=== PATIENT | male | born 1955 | race Caucasian/White ===

== ENCOUNTER 2019-02-27 20:11 | Emergency (ER) | payer MEDICARE, MEDICAID, SELFPAY ==
--- NOTE | 2019-02-27 20:12 | ED_ITS ---
Entered by Rolanda David, acting as scribe for Rachel Kathleen MD HPI - Chest Pain General: Chief Complaint: Chest Pain Stated Complaint: CP Time Seen by Provider: 02/27/19 20:12 Source: patient and EMS Mode of arrival: EMS History of Present Illness: HPI narrative: 63 yo male presents with chest pain. pt states this started 4 days ago. pt states the pain has no let up yet. pt was given Tylenol at shelter but it did not help. pt denies any other symptoms at this time. MD complaint: chest pain Onset (ago): day(s) (2-3 days) Timing of current episode: still present Prior episodes: Yes Pain location: substernal Pain radiation: none Severity: mild Quality: tightness Relieving factors: nothing Exacerbating factors: nothing Associated symptoms: Reports no associated symptoms; Deny abdominal pain, dyspnea, fever(s) or vomiting Treatment prior to arrival: none Review of Systems General: Reports: 10 or more systems reviewed and unremarkable except in HPI and below Const: Denies: fever or chills Eyes: Denies: change in vision ENMT: Denies: throat pain or mouth pain Card: Reports: chest pain Resp: Denies: shortness of breath GI: Denies: abdominal pain, vomiting or diarrhea Musc: Denies: back pain or joint pain Skin/Breast: Denies: rash Neuro: Denies: headache Psych: Denies: depression Endo: Denies: excessive urination Dylon/Lymph: Denies: easy bruising All/Imm: Denies: hives PFSH ED PFSH: Statuses (acute, chronic, etc) shown below reflect problem list status as previously entered and may not be historically accurate Social History Smoking and tobacco status: former smoker Physical Exam Const: COMMON NORMALS: no apparent distress and healthy appearing HENMT: COMMON NORMALS: normocephalic and external nose normal HEAD & SCALP: normocephalic NOSE: external nose normal and no nasal discharge (nasal dischage) Eye: COMMON NORMALS: PERRL PUPIL: Yes PERRL Neck/C-Spine: COMMON NORMALS: full ROM and no lymphadenopathy Chest: COMMONS NORMALS: inspection of chest normal Resp: COMMON NORMALS: normal respiratory effort and clear to auscultation bilaterally AUSCULTATION: clear to auscultation bilaterally Cardio: COMMON NORMALS: regular rate and regular rhythm RATE: regular rate RHYTHM: regular rhythm GI: COMMON NORMALS: soft to palpation PALPATION: Yes soft Extremity: COMMON NORMALS: normal to inspection, full ROM and normal capillary refill Psych: COMMON NORMALS: mental status grossly normal and cooperative Skin: COMMON NORMALS: no rashes or lesions noted GENERAL SKIN EXAM: no rashes or lesions noted Course Vital Signs: Vital signs: Vital Signs Temperature 97.5 F L 02/27/19 20:19 Pulse Rate 76 02/27/19 20:19 Respiratory Rate 22 H 02/27/19 20:19 Blood Pressure 188/64 02/27/19 20:19 Pulse Oximetry 95 02/27/19 20:19 MDM - Chest Pain MDM Narrative: Medical decision making narrative: He has no signs of cardiac cause. Patient is stable for discharge and is return if worsening.Patient presents with chest pain is atypical in nature. His 2-hour troponin is unchanged Lab Data: Labs: Lab Results 02/27/19 02/27/19 02/27/19 Range/Units 19:50 19:50 19:50 WBC 5.7 (4.0-10.0) 10^3/ uL RBC 3.47 L (4.1-5.3) 10^6/u L Hgb 10.5 L (11.7-16.6) g/dL Hct 33.0 L (42.0-52.0) % MCV 95.1 H (80-94) fL MCH 30.3 (28.0-34.0) pg MCHC 31.8 (30.0-36.0) g/dL RDW 16.0 H (12.1-15.1) % Plt Count 81 L (130-400) 10^3/c mm MPV 10.9 H (7.4-10.4) fL Neut % (Auto) 71.4 % Lymph % (Auto) 14.1 % [place] % (Auto) 8.0 % Eos % (Auto) 5.9 % Baso % (Auto) 0.3 % Neut # (Auto) 4.1 (1.8-7.7) 10^3/u L Lymph # (Auto) 0.8 (0.8-4.8) 10^3/u L [place] # (Auto) 0.5 (0.2-0.9) 10^3/u L Eos # (Auto) 0.3 (0.0-0.8) 10^3/u L Baso # (Auto) 0.0 (0.0-0.1) 10^3/u L Nucleated RBC % (a uto) 0 % Nucleated RBCs # 0.0 /100WBC Sodium 137 (136-145) mmol/L Potassium 4.2 (3.5-5.1) mmol/L Chloride 103 (98-107) mmol/L Carbon Dioxide 23 (22-29) mmol/L Anion Gap 15.2 (5-19) BUN 9 (8-23) mg/dL Creatinine 0.7 (0.7-1.2) mg/dL GFR Calculation 113.2 (90-130) mL/min Glucose 208 H (74-106) mg/dL Calcium 9.7 (8.8-10.2) mg/Dl Total Bilirubin 0.6 (0.15-1.2) mg/dL AST 38 (0-40) U/L ALT 33 (0-41) U/L Alkaline Phosphata se 142 H (40-130) IU/L Troponin T Baselin e 31 H (0-15) ng/mL Troponin T 120 Min lower [place] (0-15) ng/mL Total Protein 7.3 (6.6-8.7) g/dL Albumin 3.4 L (3.5-5.2) g/dL Globulin 3.9 (1.3-4.6) g/dL 02/27/19 Range/Units 22:09 WBC (4.0-10.0) 10^3/ uL RBC (4.1-5.3) 10^6/u L Hgb (11.7-16.6) g/dL Hct (42.0-52.0) % MCV (80-94) fL MCH (28.0-34.0) pg MCHC (30.0-36.0) g/dL RDW (12.1-15.1) % Plt Count (130-400) 10^3/c mm MPV (7.4-10.4) fL Neut % (Auto) % Lymph % (Auto) % [place] % (Auto) % Eos % (Auto) % Baso % (Auto) % Neut # (Auto) (1.8-7.7) 10^3/u L Lymph # (Auto) (0.8-4.8) 10^3/u L [place] # (Auto) (0.2-0.9) 10^3/u L Eos # (Auto) (0.0-0.8) 10^3/u L Baso # (Auto) (0.0-0.1) 10^3/u L Nucleated RBC % (a uto) % Nucleated RBCs # /100WBC Sodium (136-145) mmol/L Potassium (3.5-5.1) mmol/L Chloride (98-107) mmol/L Carbon Dioxide (22-29) mmol/L Anion Gap (5-19) BUN (8-23) mg/dL Creatinine (0.7-1.2) mg/dL GFR Calculation (90-130) mL/min Glucose (74-106) mg/dL Calcium (8.8-10.2) mg/Dl Total Bilirubin (0.15-1.2) mg/dL AST (0-40) U/L ALT (0-41) U/L Alkaline Phosphata se (40-130) IU/L Troponin T Baselin e (0-15) ng/mL Troponin T 120 Min lower [place] 37.22 H (0-15) ng/mL Total Protein (6.6-8.7) g/dL Albumin (3.5-5.2) g/dL Globulin (1.3-4.6) g/dL Imaging Data^: CXR: Attestation: I personally reviewed and interpreted this imaging study as follows: My impression: no acute abnormality EKG Data^: EKG 1: Attestation: I personally reviewed and interpreted this EKG as follows: EKG interpretation date: 02/27/19 EKG interpretation time: 20:27 Interpretation: Normal sinus rhythm heart rate [address] or T wave abnormalities QRS 80 QTC 432 EKG 2: Attestation: I personally reviewed and interpreted this EKG as follows: EKG interpretation date: 02/27/19 EKG interpretation time: 22:23 Interpretation: nsr [address] or t wave abnormlaities qrs 84 qtc 438 Discharge Plan Discharge Patient Disposition: Home, Self-Care Clinical Impression: Chest pain Qualifiers: Chest pain type: unspecified Qualified Code(s): R07.9 - Chest pain, unspecified Condition: Stable Prescriptions: No Action acetaminophen 325 mg Tablet 650 mg PO QID PRN (Reason: Pain) RF: 0 Advair Diskus 250-50 mcg/dose Blister With Device 1 inh INHALATION BID RF: 0 albuterol sulfate 2.5 mg /3 mL (0.083 %) Solution For Nebulization 2.5 mg INHALATION Q4H PRN (Reason: Wheezing) RF: 0 loratadine 10 mg Tablet 10 mg PO DAILY RF: 0 aripiprazole 10 mg Tablet 10 mg PO DAILY RF: 0 atorvastatin 10 mg Tablet 10 mg PO DAILY RF: 0 bisacodyl 5 mg Tablet 10 mg PO DAILY PRN (Reason: Constipation) RF: 0 polyethylene glycol 3350 17 gram Powder In Packet 17 g PO DAILY PRN (Reason: Constipation) RF: 0 Deep Sea Nasal 0.65 % Aerosol,[place] INTRANASAL TID RF: 0 Enema 19-7 gram/118 mL Enema 118 ml AL DAILY PRN (Reason: Constipation) RF: 0 escitalopram oxalate 20 mg Tablet 20 mg RF: 0 GlucaGen HypoKit 1 mg Recon Soln 1 mg SUBCUT Q20M PRN (Reason: Hypoglycemia) RF: 0 lactulose 10 gram Packet 10 g PO QID RF: 0 levetiracetam 750 mg Tablet 750 mg PO BID RF: 0 Levemir U-100 Insulin 100 unit/mL Solution 60 unit SUBCUT BID RF: 0 lisinopril 5 mg Tablet 5 mg PO DAILY RF: 0 MediHoney (honey) 80 % Gel 1 applic TOPICAL DAILY RF: 0 metformin 1,000 mg Tablet 1,000 mg PO BID RF: 0 Milk of Magnesia 400 mg/5 mL Suspension 400 mg PO DAILY PRN (Reason: Constipation) RF: 0 Natural Tears (PF) 0.1-0.3 % Dropperette 1 drp OPHTHALMIC (EYE) QID PRN (Reason: Dry Eyes) RF: 0 Novolog Flexpen U-100 Insulin 100 unit/mL (3 mL) Insulin Pen 15 unit SUBCUT BEDTIME RF: 0 Novolog U-100 Insulin aspart 100 unit/mL Solution 55 unit SUBCUT DAILY RF: 0 Novolog U-100 Insulin aspart 100 unit/mL Solution 40 unit SUBCUT BID RF: 0 Nystop 100,000 unit/gram Powder TOPICAL DAILY RF: 0 ondansetron 8 mg Tablet,Disintegrating 8 mg PO Q12H PRN (Reason: Vomiting) RF: 0 quetiapine 100 mg Tablet 100 mg PO DAILY RF: 0 ranitidine HCl 150 mg Tablet 150 mg PO BID RF: 0 senna 8.6 mg Capsule 8.6 mg PO BEDTIME PRN (Reason: Constipation) RF: 0 Stool Softener 100 mg Capsule 100 mg PO BID RF: 0 topiramate 100 mg Tablet 100 mg PO BID RF: 0 Discharge Orders: Discharge Order (Routine); Ordered 02/27/19 Ordered By: Rachel Kathleen Referrals: Tanisha Mack MD [Family Provider] - 4-7 days Discharge Diet: Advance as tolerated Discharge Activity: Resume usual activity Patient Instructions: Chest Pain (ED) Coding Level of Care Code ED Md Allergy Immunology for Chg Fwd Exam Problem Focused The documentation recorded by the Frankie mckeon Bridget Annette, accurately reflects the service I personally performed and the decisions made by Hever barker Korby, MD Feb 27, 2019 20:11
--- NOTE | 2019-02-27 20:16 | ECG_ITS ---
Measurements Intervals [place] Rate: 73 P: 63 UT: 152 QRS: 56 QRSD: 80 T: 46 QT: 406 QTc: 450 SINUS RHYTHM Compared to ECG 10/14/2015 16:07:42 T-wave abnormality no longer present Electronically Signed On 02-28-2019 8:08:10 [employer]YROLL MASTER by Ozzie Powell M.D. [id number] f
[2019-02-27 20:19] VITALS: BP 188/64; PULSE 76; RESP 22; TEMP 36.4; O2SAT 95
[2019-02-27 20:25] LABS: Basophils % 0.3 %; Eosinophils # 0.3 10^3/uL (0.0-0.8); Eosinophils % 5.9 %; Hemoglobin 10.5 g/dL (11.7-16.6); Lymphocytes # 0.8 10^3/uL (0.8-4.8); Lymphocytes % 14.1 %; Mean Corpuscular HGB Conc 31.8 g/dL (30.0-36.0); Mean Corpuscular Hemoglobin 30.3 pg (28.0-34.0); Mean Corpuscular Volume 95.1 fL (80-94); Mean Platelet Volume 10.9 fL (7.4-10.4); Monocytes # 0.5 10^3/uL (0.2-0.9); Neutrophils # 4.1 10^3/uL (1.8-7.7); Neutrophils % 71.4 %; Nucleated Red Blood Cells % 0 %; Platelet Count 81 10^3/cmm (130-400); Red Blood Count 3.47 10^6/uL (4.1-5.3); White Blood Count 5.7 10^3/uL (4.0-10.0)
[2019-02-27 20:42] LABS: Troponin(5th) Baseline 31 ng/mL (0-15)
[2019-02-27 20:46] LABS: Alanine Aminotransferase 33 U/L (0-41); Albumin Level 3.4 g/dL (3.5-5.2); Alkaline Phosphatase 142 IU/L (40-130); Anion Gap 15.2 (5-19); Aspartate Amino Transferase 38 U/L (0-40); Blood Urea Nitrogen 9 mg/dL (8-23); Calcium 9.7 mg/Dl (8.8-10.2); Carbon Dioxide 23 mmol/L (22-29); Chloride 103 mmol/L (98-107); Globulin 3.9 g/dL (1.3-4.6); Glomerular Filtration Rate 113.2 mL/min (90-130); Glucose 208 mg/dL (74-106); Potassium 4.2 mmol/L (3.5-5.1); Sodium 137 mmol/L (136-145); Total Bilirubin 0.6 mg/dL (0.15-1.2); Total Protein 7.3 g/dL (6.6-8.7)
--- NOTE | 2019-02-27 21:34 | XR_ITS ---
WS: [id number] PORTABLE CHEST HISTORY: cp COMPARISON: 10/15/2015 Moderate pulmonary hyperinflation with diffuse interstitial thickening which is chronic. Interstitial thickening has progressed since the prior study. New more focal irregular opacifications at the lung bases. No pleural effusion or pneumothorax. Cardiac size: Normal. Mediastinum/Aorta: Mild atherosclerosis aorta. RIGHT shoulder arthroplasty. XR/XR chest 1V portable [id number] IMPRESSION: 1. Progression of interstitial opacifications since 2016. More focal subsegmen caridad opacifications at the lung bases. This may be due to atelectasis, pneumonit is or chronic interstitial lung disease. Recommend follow-up chest radiograph, 2 view, after patient's acute process resolves. 2. Chronic emphysema.
--- NOTE | 2019-02-27 22:16 | ECG_ITS ---
Measurements Intervals [place] Rate: 82 P: 73 WV: 159 QRS: 61 QRSD: 84 T: 48 QT: 400 QTc: 468 SINUS RHYTHM Compared to ECG 10/14/2015 16:07:42 T-wave abnormality no longer present Electronically Signed On 02-28-2019 8:09:39 CHAR CONVEYOR TENDER by Ozzie Powell M.D. [id number] f
[2019-02-27 22:32] LABS: Troponin 5 2HR 37.22 ng/mL (0-15); Troponin 5 2HR Delta 6.22 ABS# (0-10)
[2019-02-28] VITALS: BP 103/49; PULSE 60; RESP 24; O2SAT 92
[2019-02-28 00:30] VITALS: BP 134/96; PULSE 97; RESP 23; O2SAT 95
[2019-02-28 01:00] VITALS: BP 109/46; PULSE 74; RESP 14; O2SAT 93
[2019-02-28 01:14] VITALS: BP 143/107; PULSE 85; RESP 18; TEMP 36.8; O2SAT 95
[2019-02-28 02:19] VITALS: BP 109/46; PULSE 74; RESP 16; TEMP 36.4; O2SAT 93
== END 2019-02-28 01:25 | disposition home or self-care (01) ==
PROVIDERS: Emergency Provider Emergency Medicine; Family Provider Family Medicine
DX: R07.9 Chest pain, unspecified (principal); Z79.4 Long term (current) use of insulin; Z87.891 Personal history of nicotine dependence
CPT/HCPCS: 36415; 71045; 80053; 84484; 85025; 93005; 99282

== ENCOUNTER 2019-03-07 14:53 | Outpatient (CLI) | payer MEDICARE, MEDICAID, SELFPAY ==
--- NOTE | 2019-03-07 15:18 | CT_ITS ---
WS: [id number] CT CHEST TECHNIQUE: Contrast enhanced CT of the chest with coronal and sagittal reformatted images. CLINICAL INFORMATION: PULMONARY NODULE COMPARISON: CT and radiograph February 27, 2019 DLP: 1087.[address] scans at [facility] use at least one of these dose optimization techniques: automat ed exposure control; mA and/or kV adjustment per patient size (includes targeted exams where dose is matched to clinical indication); or iterative reconstruction. FINDINGS: Moderate chronic emphysematous changes. Micronodular interstitial infiltrates in both lungs with a tr ee-in-bud configuration. This is more prominent in the inferior segment right upper lobe, right middl e lobe, and both lung bases. More patchy infiltrates in both lung bases with subsegmental atelectasis . Several noncalcified groundglass pulmonary nodules the largest in the right middle lobe measuring 4 .2 mm and left lower lobe laterally measuring 5.7 mm. Recommend 3 month follow-up. A few additional tiny subpleural nodules in the right lower lobe near the fissure and right middle lo be. Aortic calcification. Coronary calcification. Calcified right hilar nodes. No mediastinal or hilar ly mphadenopathy. Normal endobronchial tree. Small esophageal hiatal hernia. Adrenal glands are normal. A few prominent lymph nodes in the upper abdomen nonspecific but likely re active. Cirrhotic configuration to the partially visualized liver. Recommend correlation with liver f unction tests. CT/CT chest w con* [id number] IMPRESSION: 1. Patchy tree-in-bud infiltrates within the right upper lobe, right middle lo be, and both lung bases. This can be seen with small airways disease, infectiou s/inflammatory bronchiolitis, hypersensitivity pneumonitis, and atypical mycoba cterial infection. 2. Additional patchy infiltrates in the left greater than right lung base with subsegmental atelectasis. 3. A few noncalcified groundglass pulmonary nodules the largest in the left miri ng base measuring 5 mm and right middle lobe measuring 4.2 mm. Recommend 3 donato h follow-up. 4. Additional tiny subcentimeter subpleural nodules in the right middle lobe and right lower lobe near the fissure. 5. Vascular calcification including coronary. 6. Cirrhotic configuration to the liver partially visualized. Recommend correl ation with liver function tests. Gallbladder is contracted.
[2019-03-07] MEDS: iohexol 300 mg/mL 100 mL Btl IV (15:45)
== END 2019-03-07 14:54 | disposition home or self-care (01) ==
LOC: RADWPI 14:58
PROVIDERS: Family Provider Family Medicine; PCP Family Medicine; Visit Provider Internal Medicine Gastroenterology
DX: J98.11 Atelectasis (principal); R91.8 Other nonspecific abnormal finding of lung field; Z12.9 Encounter for screening for malignant neoplasm, site unspecified; I25.10 Atherosclerotic heart disease of native coronary artery without angina pectoris; K74.60 Unspecified cirrhosis of liver; K82.0 Obstruction of gallbladder
CPT/HCPCS: 71260; Q9967

== ENCOUNTER 2019-03-12 12:10 | Outpatient (CLI) | payer MEDICARE, MEDICAID, SELFPAY | END 2019-03-12 12:11 | disposition home or self-care (01) | LOC: ONCMED 14:50 | PROVIDERS: Family Provider Family Medicine; PCP Family Medicine; Visit Provider Internal Medicine Hematology & Oncology | DX: Z76.89 Persons encountering health services in other specified circumstances (principal) ==

== ENCOUNTER 2019-03-13 08:12 | Outpatient (CLI) | payer MEDICARE, MEDICAID, SELFPAY ==
--- NOTE | 2019-03-14 09:27 | ONC FU_ITS ---
Dr. Javier follow up note Patient: Josh Delarosa Unit #: [id number]: [id number] Dicatated By: Lázaro Javier M.D.Date of Visit:Mar 13, 2019 Onc Med Follow-up/Prog Note History of Present Illness: Mr. Josh Delarosa, is a 63-year-old gentleman, with long-standing history of mild thrombocytopenia, patient said he was told about low platelets but no workup was suggested, as per medical record his CBC from 01/30/2018 showed white blood count 5.8 hemoglobin 13.4 crit 40.2 platelets 97,000 with a normal differential then follow-up CBC on 05/10/2018 again showed platelet count 93,000 with remaining CBC with mild anemia hemoglobin 12.9 normal being more than 14 g Repeat CBC on 05/31/2018 showed platelet count 96,000, hemoglobin 13.6 g white blood count 5.6 And then repeat CBC on 07/03/2018 shows platelet count 85,000 with hemoglobin 12.6 and white blood count 5.4. With a normal differential. Patient denies any alcohol use patient denies any new medication but he has history of seizure for which he is on antiseizure medication Keppra Patient denies any alcohol use, but h/o ETOH use patient denies any history of hepatitis, denies any abdominal fullness, denies any peripheral lymphadenopathy, denies any history of gross bleeding or petechiae or ecchymosis. Patient denies any night sweats denies any weight loss denies any recurrent fever. MRI scan of the abdomen done on 08/22/2018 showed medial segment left lobe liver lesion, nonspecific appearance but washout on delayed postcontrast enhancement suggest were differentiated hepatocellular carcinoma should be considered Tumor markers checked on 09/13/2018 showed AFP 5.6, CA 19???9 27.0 CEA 3.9 Additional left and right lobe small liver lesion seen only on precontrast sequences, metastatic disease should be considered. Spleen is enlarged measuring 15.5 cm Patient was referred to coding educator in [place] for evaluation for hepatic cirrhosis/hepatic lesions seen on MRI scan, was seen on 10/20/2018 and impression based on MRI findings e.g. nodular liver, hypertrophy of caudate, splenomegaly, all suggestive of hepatic cirrhosis. 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 As far as hepatic lesions are concern follow-up MRI scan of liver was recommended patient is scheduled to get one in [place], [place]. Patient had some mental status changes on the day of evaluation, he was treated with lactulose for possible hepatic encephalopathy. Came for follow-up, denies any specific complaints, no nosebleed or gum bleed, no melena or hematochezia no petechiae or ecchymosis, no hematuria., No abdominal pain., No nausea or vomiting, no fever or chills. Medications: Acetaminophen 2 Tablet (of 325 mg) Oral q 4 hours, Advair Diskus 1 puff(s) (of 250-50 mcg/dose) Aerosol Powder, Breath Activated Inhalation b.i.d., Albuterol Sulfate 1 puff(s) (of (2.5 mg/3ml) 0.083%) Nebulization solution Inhalation four times a day PRN, ARIPiprazole 1 Tablet (of 10 mg) Oral daily, Atorvastatin Calcium 1 Tablet (of 10 mg) Oral at bedtime, Bisacodyl 2 Tablet (of 5 mg) Tablet, enteric coated Oral daily PRN, ClearLax 1 Powder Oral daily PRN, Deep Sea Nasal [place] 1 - 2 spray(s) (of 0.65 %) Solution Nasal t.i.d., Docusate Sodium 1 Tablet (of 100 mg) Oral b.i.d. PRN, Enema 1 Enema Rectal daily PRN, Escitalopram Oxalate 1 Tablet (of 20 mg) Oral daily, Lactulose 45 mL (of 10 g/15mL) Solution Oral four times a day, Levemir 60 Units (of 100 Units/mL) Subcutaneous b.i.d., levETIRAcetam 1 Tablet (of 750 mg) Oral b.i.d., Lisinopril 1 Tablet (of 5 mg) Oral daily, Loratadine 1 Tablet (of 10 mg) Oral daily, metFORMIN HCl 1 Tablet (of 1000 mg) Oral b.i.d., Milk of Magnesia 30 mL (of 400 mg/5mL) Suspension Oral daily PRN, Natural Balance Tears 1 drop(s) (of 0.4 %) Solution Ophthalmic four times a day PRN, Nitroglycerin 1 Tablet (of 0.4 mg) Tablet, sublingual Sublingual PRN, NovoLOG Subcutaneous Take as Directed, Nystatin 1 Applicator (of 367628 Units/g) Powder Topical daily, Ondansetron HCl 1 Tablet (of 8 mg) Oral b.i.d. PRN, QUEtiapine Fumarate 1 Tablet (of 100 mg) Oral at bedtime, raNITIdine HCl 1 Tablet (of 150 mg) Oral b.i.d., Stool Softener 1 Tablet (of 100 mg) Oral b.i.d. PRN, Topiramate 1 Tablet (of 100 mg) Oral b.i.d. Allergies: No Known Allergies. Review of Systems: Review of Systems is not available for this patient. Vital Signs: Performed on Mar 13, 2019 08:38 Height - 70.00 in Weight - 263.2 lbs (LOW) BSA - 2.35 sq.m BMI - 37.77 (HIGH) Temperature - 98.4 F Pulse - 72 /min Respiration - 24 /min BP - 128/67 mm(hg) O2 Sat - 98 % Pain - 0 Performance Status: 1 - No physically strenuous activity, but ambulatory and able to carry out light or sedentary work (e.g. office work, light house work). (ECOG) Physical Examination: ENMT - No oral exudates, ulcers, masses, thrush or mucositis. Oropharynx clear. Tongue normal, Respiratory - Lungs are clear to auscultation without rhonchi or wheezing, Cardiovascular - Regular rate and rhythm of heart, Abdomen - Non-tender,Good bowel sounds. No guarding or rebound tenderness. No pulsatile masses, Extremities - no edema. Lab/Imaging: Test performed on Mar 08, 2019 06:18 WBC 4.0 10^9/L RBC 3.70 10^12/L HGB 11.6 g/dL HCT 35.6 % MCV 96.1 fl MCH 31.2 pg MCHC 32.4 g/dL RDW 17.1 % Platelet Count 89 10^9/L Neutrophils (Gran) 2.30 10^9/L Lymphocytes 1.00 10^9/L Monocytes 0.50 10^9/L Eosinophils 0.20 10^9/L Basophils 0.10 10^9/L Manual Lymphocytes 24.2 % Manual Monocytes 11.6 % Manual Eosinophils 5.9 % Manual Basophils 1.2 % Test performed on Nov 14, 2018 09:40 Sodium 140 mmol/L Potassium 4.2 mmol/L Chloride 104 mmol/L CO2 23 mmol/L Anion Gap 17.2 BUN 8 mg/dL Creatinine 0.6 mg/dL Cr Clearance (Est) 209.32 mL/min eGFR 135.2 mL/min Glucose 157 mg/dl Calcium 10.0 mg/dL Protein, Total 7.9 g/dL Albumin 3.7 g/dL Globulin 4.2 gm/dL Bilirubin, Total 0.7 mg/dL ALT (SGPT) 42 U/L AST (SGOT) 55 U/L Alkaline Phosphatase 151 U/L MPV 8.5 fl Neutrophil % 60.5 % Lymphocyte % 22.0 % Monocyte % 10.9 % Eosinophil % 5.8 % Basophils % 0.8 % Test performed on Nov 10, 2018 04:53 Ammonia 158 mcg/dL BUN/Creatinine Ratio 16 absolute value Hemoglobin A1C 7.1 % Manual Segs 55.2 % Impression: Isolated mild thrombocytopenia, etiology unclear could be due to Splenic sequestration, as MRI scan done on 08/22/2018 showed splenomegaly and other possibilities include medications like Keppra, BRUNO inhibitor, or nutritional or mild ITP, considering his age underlying myelodysplasia cannot be ruled out Mild anemia, could be nutritional or due to medication or underlying myelodysplasia. History of seizure on Keppra Abdominal sonogram done on 07/26/2018 showed hypoechogenic structure in the tail of the pancreas is identified measuring 3 cm in greatest diameter. Liver measures 17.7 cm and heterogeneous in echotexture. There is a subtle hypo-echogenic mass is identified measuring 2.2 cm in the left lobe of the liver. Spleen is enlarged measuring 17.9 cm but otherwise homogeneous in echotexture. CT scan of abdomen done on 08/04/2018 showed slight cirrhotic configuration of the liver progressed since 2010. A few prominent lymph nodes in the juanito hepatis likely reactive. Pancreas is normal, spleen is normal Patchy infiltrates in the right greater than left lung bases. MRI scan of the abdomen done on 08/22/2018 showed medial segment left lobe liver lesion, nonspecific in appearance but washout on delayed post contrast enhancement suggests were differentiated hepatocellular carcinoma should be considered clinically Labs checked on 09/13/2018 AFP 5.6 CA 19???27 CEA 3.9 Additional left and right lobe small liver lesions seen only on precontrast sequences metastatic disease should be considered clinically Splenomegaly size 15.5 cm Plan: Discussed with patient regarding his labs white blood count 4 hemoglobin 11.6 crit 35.6 platelets 89,000 compared to 95,000 on 11/14/2018 Clinically, patient is doing well with no sign of gross bleeding his follow-up CBC shows stable white blood count and hemoglobin as well as persistent mild/moderate thrombocytopenia which is most likely due to splenic sequestration, but stable. No evidence of gross bleeding. We'll continue to monitor unless there is a further and progressive drop in his platelet count in that case we'll consider further workup otherwise continue to observe and he will return to clinic in 3 months with CBC Patient is following with coding educator in [place] as far as hepatic cirrhosis is concern and a central hypoechoic mass in left lobe of the liver. We will obtain record from coding educator's office. Signed By: Lázaro Javier M.D. <<Signature on File>>
== END 2019-03-13 08:13 | disposition home or self-care (01) ==
LOC: ONCMED 08:16
PROVIDERS: Family Provider Family Medicine; PCP Family Medicine; Visit Provider Internal Medicine Hematology & Oncology
DX: D69.59 Other secondary thrombocytopenia (principal); D64.9 Anemia, unspecified; R56.9 Unspecified convulsions; F10.21 Alcohol dependence, in remission; K74.60 Unspecified cirrhosis of liver; R16.1 Splenomegaly, not elsewhere classified; K76.9 Liver disease, unspecified; Z79.899 Other long term (current) drug therapy
CPT/HCPCS: G0463

== ENCOUNTER 2019-08-29 07:27 | Outpatient (CLI) | payer MEDICARE, MEDICAID, SELFPAY ==
[2019-08-29 09:33] LABS: Basophils % 0.8 %; Eosinophils # 0.4 10^3/uL (0.0-0.8); Eosinophils % 11.4 %; Hematocrit 34.1 % (42.0-52.0); Hemoglobin 10.7 g/dL (11.7-16.6); Lymphocytes # 0.9 10^3/uL (0.8-4.8); Lymphocytes % 24.3 %; Mean Corpuscular HGB Conc 31.4 g/dL (30.0-36.0); Mean Corpuscular Hemoglobin 30.8 pg (28.0-34.0); Mean Corpuscular Volume 98.3 fL (80-94); Mean Platelet Volume 11.7 fL (7.4-10.4); Monocytes # 0.5 10^3/uL (0.2-0.9); Monocytes % 13.2 %; Neutrophils # 1.9 10^3/uL (1.8-7.7); Nucleated Red Blood Cells % 0 %; Platelet Count 67 10^3/cmm (130-400); Red Blood Count 3.47 10^6/uL (4.1-5.3); Red Cell Distribution Width 15.9 % (12.1-15.1); White Blood Count 3.8 10^3/uL (4.0-10.0)
== END 2019-08-29 07:28 | disposition home or self-care (01) ==
LOC: ONCMED 09:11
PROVIDERS: PCP Family Medicine; Visit Provider Internal Medicine Hematology & Oncology
DX: D69.6 Thrombocytopenia, unspecified (principal); D64.9 Anemia, unspecified
CPT/HCPCS: 85025

== ENCOUNTER 2019-08-31 08:49 | Outpatient (CLI) | payer MEDICARE, MEDICAID, SELFPAY ==
--- NOTE | 2019-08-31 11:19 | ONC FU_ITS ---
Dr. Javier follow up note Patient: Josh Delarosa Unit #: [id number]: [id number] Dicatated By: Lázaro Javier M.D.Date of Visit:Aug 31, 2019 Onc Med Follow-up/Prog Note History of Present Illness: Mr. Josh Delarosa, is a 64 -year-old gentleman, with long-standing history of mild thrombocytopenia, patient said he was told about low platelets but no workup was suggested, as per medical record his CBC from 01/30/2018 showed white blood count 5.8 hemoglobin 13.4 crit 40.2 platelets 97,000 with a normal differential then follow-up CBC on 05/10/2018 again showed platelet count 93,000 with remaining CBC with mild anemia hemoglobin 12.9 normal being more than 14 g Repeat CBC on 05/31/2018 showed platelet count 96,000, hemoglobin 13.6 g white blood count 5.6 And then repeat CBC on 07/03/2018 shows platelet count 85,000 with hemoglobin 12.6 and white blood count 5.4. With a normal differential. Patient denies any alcohol use patient denies any new medication but he has history of seizure for which he is on antiseizure medication Keppra Patient denies any alcohol use, but h/o ETOH use patient denies any history of hepatitis, denies any abdominal fullness, denies any peripheral lymphadenopathy, denies any history of gross bleeding or petechiae or ecchymosis. Patient denies any night sweats denies any weight loss denies any recurrent fever. MRI scan of the abdomen done on 08/22/2018 showed medial segment left lobe liver lesion, nonspecific appearance but washout on delayed postcontrast enhancement suggest were differentiated hepatocellular carcinoma should be considered Tumor markers checked on 09/13/2018 showed AFP 5.6, CA 19???9 27.0 CEA 3.9 Additional left and right lobe small liver lesion seen only on precontrast sequences, metastatic disease should be considered. Spleen is enlarged measuring 15.5 cm Patient was referred to [facility] in [place] for evaluation for hepatic cirrhosis/hepatic lesions seen on MRI scan, was seen on 10/20/2018 and impression based on MRI findings e.g. nodular liver, hypertrophy of caudate, splenomegaly, all suggestive of hepatic cirrhosis. 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 As far as hepatic lesions are concern, As per caregiver, patient went to see Dr. Ramon, [facility] in [place], who in return referred him to [facility] at [facility] in [place] where, as per caregiver he was diagnosed with liver cancer and so far has been treated twice with 'direct' infusional therapy to the liver, patient used to stay overnight at [facility] during those treatment. He was scheduled for next treatment last month but because of COVID virus, his sister did not allow him to go there, now being rescheduled. Came for follow-up, complaining of generalized weakness and fatigue but no fever chills, no nausea or vomiting, no diarrhea or constipation but weight loss, due to poor appetite, denies any melena or hematochezia, no abdominal pain. Medications: Acetaminophen 2 Tablet (of 325 mg) Oral q 4 hours, Advair Diskus 1 puff(s) (of 250-50 mcg/dose) Aerosol Powder, Breath Activated Inhalation b.i.d., Albuterol Sulfate 1 puff(s) (of (2.5 mg/3ml) 0.083%) Nebulization solution Inhalation four times a day PRN, ARIPiprazole 1 Tablet (of 10 mg) Oral daily, Atorvastatin Calcium 1 Tablet (of 10 mg) Oral at bedtime, Bisacodyl 2 Tablet (of 5 mg) Tablet, enteric coated Oral daily PRN, ClearLax 1 Powder Oral daily PRN, Deep Sea Nasal Noble 1 - 2 spray(s) (of 0.65 %) Solution Nasal t.i.d., Docusate Sodium 1 Tablet (of 100 mg) Oral b.i.d. PRN, Enema 1 Enema Rectal daily PRN, Escitalopram Oxalate 1 Tablet (of 20 mg) Oral daily, Lactulose 45 mL (of 10 g/15mL) Solution Oral four times a day, Levemir 60 Units (of 100 Units/mL) Subcutaneous b.i.d., levETIRAcetam 1 Tablet (of 750 mg) Oral b.i.d., Lisinopril 1 Tablet (of 5 mg) Oral daily, Loratadine 1 Tablet (of 10 mg) Oral daily, metFORMIN HCl 1 Tablet (of 1000 mg) Oral b.i.d., Milk of Magnesia 30 mL (of 400 mg/5mL) Suspension Oral daily PRN, Nadolol 1 Tablet (of 20 mg) Oral daily, Natural Balance Tears 1 drop(s) (of 0.4 %) Solution Ophthalmic four times a day PRN, Nitroglycerin 1 Tablet (of 0.4 mg) Tablet, sublingual Sublingual PRN, NovoLOG Subcutaneous Take as Directed, Nystatin 1 Applicator (of 127170 Units/g) Powder Topical daily, Ondansetron HCl 1 Tablet (of 8 mg) Oral b.i.d. PRN, QUEtiapine Fumarate 1 Tablet (of 100 mg) Oral at bedtime, raNITIdine HCl 1 Tablet (of 150 mg) Oral b.i.d., Stool Softener 1 Tablet (of 100 mg) Oral b.i.d. PRN, Topiramate 1 Tablet (of 100 mg) Oral b.i.d. Allergies: No Known Allergies. Review of Systems: Constitutional - Appetite is fair and weight is decreasing. No fever, chills, hot flashes, or night sweats. Energy level continues to be poor, ENMT - No sinus congestion/drainage. No mouth sores. No sore throat or difficulty swallowing, Hematologic/Lymphatic - No abnormal bruising or bleeding, Respiratory - Positive for shortness of breath and cough. No pleuritic pain or hemoptysis, Cardiovascular - No cardiovascular symptoms today, Gastrointestinal - No nausea or vomiting. No heartburn or acid reflux. No diarrhea or constipation. No blood in the stool or black stools, Genitourinary (M) - No dysuria or hematuria. No urinary frequency. 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 Vital Signs: Performed on Aug 31, 2019 09:14 Height - 70.00 in Weight - 242.2 lbs (LOW) BSA - 2.26 sq.m BMI - 34.75 (HIGH) Temperature - 98.6 F Pulse - 62 /min Respiration - 14 /min BP - 110/53 mm(hg) O2 Sat - 96 % Pain - 0 Performance Status: 2 - Ambulatory/capable of all self-care, unable to perform any work activities. Up and about more than 50% of waking hours. (ECOG) Physical Examination: ENMT - No mouth sores no thrush no jaundice, Respiratory - Lungs are clear, Cardiovascular - Regular rate and rhythm of heart, Abdomen - Soft, bowel sounds present, Extremities - 1+ edema bilaterally with chronic lower extremity rash/chronic venous stasis. Lab/Imaging: Test performed on Mar 08, 2019 06:18 WBC 4.0 10^9/L RBC 3.70 10^12/L HGB 11.6 g/dL HCT 35.6 % MCV 96.1 fl MCH 31.2 pg MCHC 32.4 g/dL RDW 17.1 % Platelet Count 89 10^9/L Neutrophils (Gran) 2.30 10^9/L Lymphocytes 1.00 10^9/L Monocytes 0.50 10^9/L Eosinophils 0.20 10^9/L Basophils 0.10 10^9/L Manual Lymphocytes 24.2 % Manual Monocytes 11.6 % Manual Eosinophils 5.9 % Manual Basophils 1.2 % Impression: Isolated mild thrombocytopenia, etiology unclear could be due to Splenic sequestration, as MRI scan done on 08/22/2018 showed splenomegaly and other possibilities include medications like Keppra, BRUNO inhibitor, or nutritional or mild ITP, considering his age underlying myelodysplasia cannot be ruled out Mild anemia, could be nutritional or due to medication or underlying myelodysplasia. History of seizure on Keppra Abdominal sonogram done on 07/26/2018 showed hypoechogenic structure in the tail of the pancreas is identified measuring 3 cm in greatest diameter. Liver measures 17.7 cm and heterogeneous in echotexture. There is a subtle hypo-echogenic mass is identified measuring 2.2 cm in the left lobe of the liver. Spleen is enlarged measuring 17.9 cm but otherwise homogeneous in echotexture. CT scan of abdomen done on 08/04/2018 showed slight cirrhotic configuration of the liver progressed since 2010. A few prominent lymph nodes in the juanito hepatis likely reactive. Pancreas is normal, spleen is normal Patchy infiltrates in the right greater than left lung bases. MRI scan of the abdomen done on 08/22/2018 showed medial segment left lobe liver lesion, nonspecific in appearance but washout on delayed post contrast enhancement suggests were differentiated hepatocellular carcinoma should be considered clinically Labs checked on 09/13/2018 AFP 5.6 CA 19???27 CEA 3.9 Additional left and right lobe small liver lesions seen only on precontrast sequences metastatic disease should be considered clinically Splenomegaly size 15.5 cm Plan: Discussed with patient and his caregiver about his labs white blood count 3.8 hemoglobin 10.7 hematocrit 34.1 platelets 67,000 ANC 1900 Clinically, patient is doing reasonably well, since his last visit, patient has been diagnosed with probable liver cancer, as per caregiver is getting overnight infusion therapy every month at [facility], in [place]. And he missed his last monthly dose because of his sister's decision not to let him go to [place] because of coronavirus. Now waiting for reschedule. We will obtain information from [facility] as well as from [place] regarding his hepatic lesion/cancer management. As far as mild pancytopenia/moderate thrombocytopenia is concerned could be side effect from the infusional therapy or progressive splenic sequestration. At this point we will continue to monitor and once we have information from hepatology clinic at [facility], available to us, will follow their guidelines if needed. Patient was advised in case he has any evidence of gross bleeding or any mental status changes and need to go to hospital immediately. Otherwise we will see him back in 1 month with CBC CMP Signed By: Lázaro Javier M.D. <<Signature on File>>
== END 2019-08-31 08:50 | disposition home or self-care (01) ==
LOC: ONCMED 08:54
PROVIDERS: PCP Family Medicine; Visit Provider Internal Medicine Hematology & Oncology
DX: D69.6 Thrombocytopenia, unspecified (principal); D64.9 Anemia, unspecified; C22.9 Malignant neoplasm of liver, not specified as primary or secondary; Z79.899 Other long term (current) drug therapy
CPT/HCPCS: G0463